=== PATIENT | female | born 1965 | race Caucasian/White ===

== ENCOUNTER 2022-02-24 14:58 | Emergency (ER) | payer OTHER ==
[2022-02-24 15:17] VITALS: BP 115/66; PULSE 97; RESP 18; TEMP 99; BMI 25.4
== END 2022-02-24 18:25 | disposition home or self-care (01) ==
LOC: JER 14:58
DX: J02.9 Acute pharyngitis, unspecified (principal); M79.10 Myalgia, unspecified site; R68.83 Chills (without fever)
CPT/HCPCS: 0241U-QW; 99283-25